=== PATIENT | male | born 1950 | race Caucasian/White ===

== ENCOUNTER 2018-05-02 13:41 | Emergency (ER) | payer MEDICARE, MEDICAID ==
[~2018-05-02] VITALS: Ht 167.6 cm; Wt 65.0 kg
[2018-05-02] MEDS ORDERED: KETO5DRO80 EACHEYE (14:08)
[2018-05-02] MEDS ORDERED: BRIN8DRO EACHEYE (14:08)
[2018-05-02 15:05] LABS: BASOPHILS % 1.2 % (0.0-2.0); EOSINOPHILS % 0.6 % (0.0-5.0); HEMATOCRIT. 26.9 % (42.0-52.0); HEMOGLOBIN. 9.5 g/dL (14.0-18.0); LYMPHOCYTES % 20.2 % (20.0-50.0); MEAN CORPUSCULAR HEMOGLOBIN 38.4 pg (28.0-32.0); MEAN CORPUSCULAR VOLUME 108.8 fL (80.0-94.0); MEAN PLATELET VOLUME 7.9 fl (7.4-10.4); MONOCYTES % 7.5 % (2.0-8.0); NEUTROPHILS % 70.5 % (40.0-76.0); PLATELET 219 x1000/uL (130-400); RED BLOOD CELL COUNT 2.47 mill/uL (4.7-6.1); RED CELL DISTRIBUTION WIDTH 14.8 % (11.6-14.6)
[2018-05-02 15:06] LABS: CHLORIDE 103 mEq/L (98-107); INR 1.1; PROTHROMBIN TIME 11.7 sec (9.4-11.6)
[2018-05-02 18:14] VITALS: BP 120/64
[2018-05-02] MEDS ORDERED: FUROSEMIDE 20MG/2ML VIAL IVP NR (19:30)
[2018-05-02] MEDS ORDERED: DEXTROSE 50% WATER 50ML SYRINGE IV ONE (19:30)
== END 2018-05-02 21:15 | disposition left against medical advice (07) ==
LOC: ER 15:27
DX: I50.9 Heart failure, unspecified (principal); R60.0 Localized edema; M79.89 Other specified soft tissue disorders; F17.200 Nicotine dependence, unspecified, uncomplicated; Z85.46 Personal history of malignant neoplasm of prostate; Z85.89 Personal history of malignant neoplasm of other organs and systems
CPT/HCPCS: 36415; 71045; 80053; 82962; 83880; 84484; 85025; 85610; 93005; 93970; 99285

== ENCOUNTER 2018-12-06 13:26 | Emergency (ER) | payer MEDICARE, MEDICAID ==
[~2018-12-06] VITALS: Ht 167.6 cm; Wt 695.0 kg
[~2018-12-06 13:26] MED LIST: BRIN8DRO EACHEYE; KETO5DRO80 EACHEYE
[2018-12-06] MEDS ORDERED: IBUPROFEN 600MG TABLET PO STA (16:19)
[2018-12-06] MEDS ORDERED: TETANUS, DIPHTHERIA, PERTUSSIS VAC/PF 0.5ML (>7YR OLD) IM ONE (16:30)
[2018-12-06 18:00] VITALS: BP 129/51
== END 2018-12-06 18:04 | disposition home or self-care (01) ==
LOC: ER 13:26
DX: S22.41XA Multiple fractures of ribs, right side, initial encounter for closed fracture (principal); W01.0XXA Fall on same level from slipping, tripping and stumbling without subsequent striking against object, initial encounter; Y93.K1 Activity, walking an animal; Y92.89 Other specified places as the place of occurrence of the external cause; Z23 Encounter for immunization
CPT/HCPCS: 71101; 90471; 90715; 99283